=== PATIENT | female | born 2000 | race Caucasian/White ===

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

== ENCOUNTER 2025-11-14 11:38 | Inpatient (IN) ==
[2025-11-14] MEDS ORDERED: LIDOCAINE 1% LOCAL 20 ML VIAL INFIL PRN (12:10)
[2025-11-14 12:59] LABS: Hematocrit (blood only) 41.4 % (37.0-47.0); Hemoglobin 13.9 g/dL (12.0-16.0); Mean Corpuscular Hemoglobin 29.3 pg (25.0-34.0); Mean Corpuscular Volume 87.3 fL (80.0-100.0); Platelet Count 237 K/uL (130-400); RDW Standard Deviation 39.6 fL (36.4-46.3); Red Blood Count 4.74 M/uL (4.20-5.40); White Blood Count 10.90 K/ul (4.8-10.8)
[2025-11-14] MEDS: CALCIUM CARBONATE 500 MG CHEWABLE TAB PO PRN (13:03)
--- NOTE | 2025-11-14 13:24 | History & Physical Report ---
Date of Service November 14, 2025 Assessment & Plan (1) with 39 completed weeks gestation: (2) Encounter for induction of labor: Plan admit, iv. labs. no bp issue here but offered and accepted induction of labor. sousa placed and will start pit when unit census allows. [facility] categ 1. Admission and Anticipated Discharge Date Admission Date: November 14, 2025 History of Present Illness Chief Complaint: elevated bp in office. Primary Care Provider: DIANDRA Jorge 25yo at 39+wks bridgette presents to LD from office with elevated bps. She was seen in office by me yesterday and sent to LD with alot of symptoms and sbp >140 x 2. Her bps here were normal, labs were normal and she was sent home. She went to office today and sbp elevated again and sent here again. BPs here again are normal. Pt notes same mild nava that she had yesterday, not enough to take meds. She had many complaints yesterday as well as far as intermittent visual change and n/v. Of note, on prior recent exams, palpated vaginal septum or hymenal band persistent. PNC uncomplicated PNL rh pos, ri, gbs neg OBH: g1 GYNH: nl paps no stds Allergies Allergy/AdvReac Type Severity Reaction Status Date / Time red dye Allergy Unknown hives Verified 11/14/25 10:49 azithromycin Allergy Rash Verified 11/14/25 10:49 Home Medications Medication Instructions Recorded Confirmed Type PNV [id number] See Rx Instructions .Route .COMPLEX 04/09/25 11/14/25 History [ Gummies] Patient History Medical History (Updated 11/14/25 @ 13:34 by Tracie Garcia MD, FACOG) Vaginal septum Varicella vaccination Flying phobia POTS (postural orthostatic tachycardia syndrome) Closed head injury Surgical History History of oral surgery S/P wisdom tooth extraction Family History Grandfather (Maternal) Colorectal cancer Stomach cancer Grandmother (Maternal) Breast cancer CHF (congestive heart failure) Mother Anxiety Sister Anxiety Other Cancer Denies family history of Ovarian cancer Prostate cancer Myocardial infarction Lung cancer Social History Smoking Status: Never smoker Do You Dip or Chew Tobacco: No; Hx Alcohol Use: No Hx Substance Use: No Preferred Language: [place] Communication Ability: Effective Visual Impairment: No Limitations Hearing Ability: Normal Janitorial Cleaner Required: No Beliefs That Will Affect Care: None marital status: Single marital status details: soco Perez (24) [phone] Current Living Situation: Significant Other Current Living Situation Comment: lives with parents, cats-parents changing litter current occupational status: student 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 [employer] How many Children do You have: 0 Feels Safe at Home: Yes Childhood Exposure to Second-Hand Smoke: No caffeine: Yes Dental Care, Regularly: Yes Physical Activity Frequency: Does not Exercise Seatbelt Use: always Sunscreen Use: Yes Assistive Devices: None Review of Systems as per Subjective / HPI Physical Exam Constitutional: WD/WN, vitals as above Respiratory: normal respiratory effort, lungs clear to auscultation Cardiovascular: Rate/Rhythm: regular rate and regular rhythm Gastrointestinal (Abdomen): Percussion/Palpation: abdomen soft (gravid); abdomen nontender and no guarding Neurologic: grossly normal Psychiatric: A+Ox3, euthymic affect Genitourinary: Manual OB Exam: + cervical dilation (1), + cervical effacement 70% and + station (mid med) -2 OB Exam Monitor Tracing: + external FHT monitor used, + external uterine monitor used, + category I and + normal FHT variability PROCEDURE: sse cx visualized easily, grasped on ant lip with ring forcep, sousa through os and balloon inflated with 40cc sterile water. Spec removed, sousa taped to leg. pt marielena well. Results & Data Vital Signs (Past 12 Hours) Vital Signs Pulse BP 11/14/25 12:05 108 H 125/85 Coding Level of Care Code None Diagnoses with 39 completed weeks gestation Z3A.39 Encounter for induction of labor Z34.90
[2025-11-14] MEDS: LACTATED RINGER'S 1,000 ML IV PRN (14:53)
[2025-11-14] MEDS: OXYTOCIN 30 UNITS/NSS 30 UNITS/500 ML BAG IV PRN (14:53)
[2025-11-14] MEDS: ONDANSETRON INJ 2 MG/ML 2 ML VIAL IV PRN (20:08)
[2025-11-14] MEDS ORDERED: ONDANSETRON INJ 2 MG/ML 2 ML VIAL IV PRN (20:12)
[2025-11-14] MEDS ORDERED: NALBUPHINE HCL INJ 10 MG/ML AMP IV PRN (20:12)
[2025-11-14] MEDS ORDERED: LIDOCAINE 2% MPF LOCAL 5 ML VIAL EPI PRN (20:12)
[2025-11-14] MEDS ORDERED: BUPIVACAINE 0.25% PF 30 ML VIAL EPI PRN (20:12)
[2025-11-14] MEDS ORDERED: SODIUM CHLORIDE 0.9% PF INJ 10 ML VIAL EPI PRN (20:12)
[2025-11-14] MEDS ORDERED: NALOXONE HCL 1 MG in SODIUM CHLORIDE 0.9% 1,000 ML IV PRN (20:12)
[2025-11-14] MEDS ORDERED: ROPIVACAINE 0.5% PF 5 MG/ML 20 ML VIAL EPI PRN (20:12)
[2025-11-14] MEDS ORDERED: diphenhydrAMINE 50 MG/ML VIAL IV PRN (20:12)
[2025-11-14] MEDS ORDERED: fentANYL 2 MCG/ML BUPIVacaine 0.125%-NSS 100ML BAG EPI PRN (20:12)
[2025-11-14] MEDS ORDERED: NALOXONE HCL 0.4 MG/1 ML VIAL/CARP IV PRN (20:12)
--- NOTE | 2025-11-14 20:14 | Anesthesiology Consultation ---
Date of Service November 14, 2025 Assessment & Plan (1) Encounter for pre-operative examination: Chart Review Chart Review: Patient NOT seen in Pre Admission Testing and Acceptable Risk for Labor Epidural Consults Requested none History Height/Weight Height: 5 ft Weight: 81.647 kg Allergies Allergy/AdvReac Type Severity Reaction Status Date / Time red dye Allergy Unknown hives Verified 11/14/25 10:49 azithromycin Allergy Rash Verified 11/14/25 10:49 Medications Home Medications Medication Instructions Recorded Confirmed Last Taken PNV no.[id number] See Rx Instructions .Route .COMPLEX 04/09/25 11/14/25 11/12/25 21:00 [ Gummies] Active Medications Generic Name Dose Route Start Last Admin Trade Name Freq PRN Reason Stop Dose Admin Calcium Carbonate 500 mg 11/14/25 12:10 11/14/25 13:03 Calcium Carbonate 500 Mg Chewable Tab PO 12/14/25 12:09 500 mg Q6H PRN Administration Indigestion Oxytocin 30 units in 500 mls @ 13 mls/hr 11/14/25 12:10 11/14/25 19:30 Pitocin 30 Units/Nss IV 11/16/25 12:09 0.78 units/hr .Q24H PRN 13 mls/hr Labor Induction/Augmentation Titration Protocol 0.78 UNITS/HR Lactated Ringer's 1,000 mls @ 125 mls/hr 11/14/25 12:10 11/14/25 20:10 Lr IV 11/16/25 12:09 999 mls/hr .Q8H PRN Administration L&D Protocol Protocol Ondansetron HCl 4 mg 11/14/25 19:55 11/14/25 20:08 Ondansetron Inj 2 Mg/Ml 2 Ml Vial IV 12/14/25 19:54 4 mg Q6H PRN Administration Nausea And Vomiting Past Medical History Medical History (Updated 11/14/25 @ 20:14 by Amol Ruiz MD) Encounter for pre-operative examination Vaginal septum Varicella vaccination Flying phobia POTS (postural orthostatic tachycardia syndrome) Closed head injury Exercise / Class Metabolic Activity II 4-5 Yardwork/Stairs/Walk up hill Past Family History Family History Grandfather (Maternal) Colorectal cancer Stomach cancer Grandmother (Maternal) Breast cancer CHF (congestive heart failure) Mother Anxiety Sister Anxiety Other Cancer Denies family history of Ovarian cancer Prostate cancer Myocardial infarction Lung cancer Past Surgical History Surgical History History of oral surgery S/P wisdom tooth extraction Social History Smoking Status: Never smoker Do You Dip or Chew Tobacco: No Hx Alcohol Use: No Hx Substance Use: No Physical Exam Vital Signs Last Vital Signs Temp 37.3 C 11/14/25 19:10 Pulse 93 H 11/14/25 20:33 Resp 18 11/14/25 19:10 BP 140/95 11/14/25 20:33 Pulse Ox 99 11/14/25 20:32 Testing Laboratory Results 11/14/25 12:35 Blood Type O Positive 11/14/25 12:35 Antibody Screen NEGATIVE 11/14/25 12:35
[2025-11-14] MEDS: BUPIVACAINE 0.25% PF 30 ML VIAL ONE (20:34)
[2025-11-14] MEDS: LIDOCAINE 2%/EPINEPHRINE 1:200,000 20 ML PF ONE (20:34)
[2025-11-14] MEDS: fentANYL 2 MCG/ML BUPIVacaine 0.125%-NSS 100ML BAG ONE (20:36)
[2025-11-14] MEDS: SODIUM CHLORIDE 0.9% PF INJ 10 ML VIAL EPI STA (21:15)
[2025-11-14] MEDS: SODIUM CHLORIDE 0.9% PF INJ 10 ML VIAL ONE (21:15)
[2025-11-14] MEDS: BUPIVACAINE 0.25% PF 30 ML VIAL EPI STA (21:15)
[2025-11-14] MEDS: LIDOCAINE 2%/EPINEPHRINE 1:200,000 20 ML PF EPI STA (21:15)
[2025-11-15] MEDS: OXYTOCIN 30 UNITS/NSS 30 UNITS/500 ML BAG IV PRN (00:44)
--- NOTE | 2025-11-15 00:46 | Delivery Summary ---
Vaginal Delivery Summary Date of Service November 15, 2025 Vaginal Delivery Summary [facility] Vaginal Delivery Summary: Pre-delivery diagnoses: 25yo @ 39 4/7, eIOL, vaginal septum Post-delivery diagnoses: same Procedure: spontaneous vaginal delivery Surgeon: Ana Rosa Sher DO Complications: none Findings: Viable male . Apgars: 8/9. Weight pending, please see nursery records Estimated QBL : 286cc Description of delivery: The patient progressed to complete with epidural anesthesia. Per patient report, she then felt need to vomit, and then the baby delivered spontaneously, and then I was called to room by RN. I arrived to room at 40 seconds of life, and the baby was on mother's abdomen, spontaneously crying. Delayed cord clamping was employed, and the cord was doubly clamped and cut. A segment was retained for cord gases. Cord blood was obtained. The placenta was delivered spontaneously intact with a 3-vessel cord. The uterus and vagina were swept of clots and debris. IV pitocin was given. The uterus became firm. The cervix, vagina, and perineum were inspected. Cervix evaluated with Ring forceps - intact. Vaginal septum torn, posterior portion required sutures to obtain hemostasis. Excellent hemostasis was observed. The mother and baby are recovering in stable and good condition in the room. Sponge, needle and instrument counts were correct x 2. Ana Rosa Sher DO [facility] Vaginal Delivery Charge Vaginal Delivery Codes: 47684 global code for the antepartum, delivery, and post- Delivery Type Details: [facility]
[2025-11-15] MEDS ORDERED: HYDROCORTISONE ACETATE 25 MG SUPP PR PRN (01:38)
[2025-11-15] MEDS ORDERED: OXYTOCIN 30 UNITS/NSS 30 UNITS/500 ML BAG IV PRN (01:38)
[2025-11-15] MEDS: BENZOCAINE 20% SPRY 85 APPLN/85 GM CAN EXT PRN (02:46)
[2025-11-15] MEDS: DIPHTHER/TETAN/PERTUS Vaccine (Tdap, Adol/Adult) 0.5mL IM ONE (02:47)
[2025-11-15] MEDS: CALCIUM CARBONATE 500 MG CHEWABLE TAB PO PRN (03:35)
[2025-11-15] MEDS: ACETAMINOPHEN 325 MG TAB PO PRN (06:48)
[2025-11-15] MEDS: IBUPROFEN 600 MG TAB PO PRN (08:07)
[2025-11-15] MEDS: DOCUSATE SODIUM 100 MG CAP PO SCH (08:08)
[2025-11-15] MEDS: PRENATAL VITAMIN 1 TAB PO SCH (08:08)
--- NOTE | 2025-11-15 12:31 | Anesthesia Procedure Note ---
Date of Service November 15, 2025 Anesthesia Post Epidural Note Vital Signs Vital Signs: Temp Pulse Resp BP Pulse Ox O2 Del Method 36.9 C 90 18 108/72 96 Room Air 11/15/25 08:15 11/15/25 08:15 11/15/25 08:15 11/15/25 08:15 11/15/25 03:28 11/15/25 08:15 Pain Intensity Abdomen: Pain Intensity: 2 Notes Mental Status: alert / awake / arousable and participated in evaluation Nausea / Vomiting: adequately controlled Pain: adequately controlled Airway Patency, RR, SpO2: stable & adequate BP & HR: stable & adequate Hydration State: stable & adequate Neuraxial Anesthesia: was administered and sensory block is resolving Anesthetic Complications: no major complications apparent Epidural: Removed without complications and With tip intact
[2025-11-15] MEDS: ONDANSETRON 4 MG OD TAB PO PRN (13:34)
--- NOTE | 2025-11-15 13:48 | Obstetrical Progress Note ---
Date of Service November 15, 2025 Assessment & Plan (1) Swelling of vulva: Plan Definitely bruising and swelling of ext labia. Protuberant tissue is in line with signout this am from provider that she had left tissue this way and suspected in pp would retract. No active abnl bleeding noted. I did not do digital exam as do not at this point feel needed. She is voiding and ambulating but is sore and feels pressure. Nursing to let me know if feel bruised area expanding. VSS but can trend hgb to see if any concern for hidden losses but pt is asymptomatic. Advise icing x 24hr from delivery and then sitz baths and time. She will trial oxycodone but advised to make sure takes colace to keep bowels soft. She gets nausea with any meds and so wanted zofran prior to having to swallow oxycodone. Will evaluate again ongoing prn or in am. Admission and Anticipated Discharge Date Admission Date: November 14, 2025 [address]sp by nursing. pt feeling pressure in vulva and evidence of vulvar hematoma that is larger than her evaluation this am. of note, pt had , did not push at all, vomited x 1 and baby delivered. did have vaginal septum that ruptured and at signout today those findings reviewed by provider as well as what was done and what she saw. Review of Systems Review of Systems: no dizziness, lightheadedness cramping suprapubically when she feeds. pressure with upright positioning. pt is voiding. ambulating. Physical Exam Constitutional: WD/WN, vitals as above Genitourinary: bilataral labia with swelling, bruising noted in swollen tissue of entire labia minora, does not seem tense like an expanding hematoma. gently labia, tissue that is also bruised protruding from vagina. no active bleeding. Results & Data Vital Signs (Past 12 Hours) Vital Signs Temp Pulse Pulse Resp BP BP Pulse Ox 11/15/25 08:15 98.4 F 90 18 108/72 11/15/25 03:28 98.4 F 114 H 16 132/85 96 11/15/25 02:40 99.0 F 18 11/15/25 02:38 112 H 135/80 11/15/25 02:23 100 H 126/62 11/15/25 02:10 98.4 F 18 11/15/25 02:08 106 H 132/69 11/15/25 01:54 108 H 132/66 O2 Del Method 11/15/25 08:15 Room Air 11/15/25 03:28 Room Air 11/15/25 02:40 11/15/25 02:38 11/15/25 02:23 11/15/25 02:10 11/15/25 02:08 11/15/25 01:54 PG Care Time/CCT Total # of Minutes Spent Total Time Spent with Patient: Total time spent is greater than 50% in coordination of care (as documented) at patient's floor/unit and/or counseling patient: Coding Level of Care Code None Diagnoses Swelling of vulva N90.89
[2025-11-15 14:47] LABS: Hematocrit (blood only) 31.8 % (37.0-47.0); Hemoglobin 11.0 g/dL (12.0-16.0)
--- NOTE | 2025-11-16 10:07 | Obstetrical Progress Note ---
Date of Service November 16, 2025 Assessment & Plan (1) care and examination: Plan doing well overall but need to see if emptying completely. bladder scan prn. also will change to codeine and see if benefit for pt. enc ambulation and time. routine care. will take time to dec soreness of vulvar area, start sitz bath. hgb noted from yesterday, do not feel ongoing bleeding and vss and therefore will not recheck at this time. Subjective Ambulation: ambulating normally Voiding: incontinence (leaking with standing, ? emptying completely thinks so) Diet Tolerance:: regular diet Lochia:: Small Feeding Type:: breast feeding still sore, has trouble feeding baby upright due to sore bottom. ankle pain yest was swelling related and she says better today. no calf pain. ? emptying with voids. hasn't started sitz baths yet. oxycodone helped with pain but wants to try something not as strong. Constitutional: + as per Subjective / HPI Physical Exam Constitutional WD/WN, vitals as above Respiratory normal respiratory effort, lungs clear to auscultation Cardiovascular Rate/Rhythm: regular rate and regular rhythm Gastrointestinal (Abdomen) Inspection/Auscultation: abdomen normal to inspection Percussion/Palpation: abdomen soft Fundus firm 2cm down Musculoskeletal nt calves no edema Neurologic grossly normal Psychiatric A+Ox3, euthymic affect Genitourinary perineum, bruising noted but not extended compared to yesterday and swelling decreased. Results & Data Vital Signs (Past 12 Hours) Vital Signs Temp Pulse Pulse Resp BP Pulse Ox O2 Del Method 11/16/25 07:45 90 18 116/78 Room Air 11/16/25 00:10 97.9 F 100 H 16 114/70 98 Room Air
[2025-11-16] MEDS: CODEINE SULFATE 30 MG TAB PO PRN (11:26)
[2025-11-16 23:37] VITALS: O2SAT 98
--- NOTE | 2025-11-17 06:28 | Obstetrical Progress Note ---
Date of Service <Tracie Garcia MD, FACOG - Last Filed: 11/17/25 07:52> November 17, 2025 Assessment & Plan <Tracie Garcia MD, FACOG - Last Filed: 11/17/25 07:52> (1) care and examination: (2) Swelling of vulva: <Erin Oviedo MD - Last Filed: 11/17/25 07:34> (1) care and examination: (2) Swelling of vulva: Plan 25 yo post- day 2 s/p . Fells well today. Vital signs stable Continue post- care Encourage ambulation and Pain improved with the use of Codeine. Worse pain 8 out of 10 on severity scale. Hgb stable Discharge home today, follow up with Dr. Sher in 6 weeks or sooner if the patient wants to see us. Continue Sitz bath and pain medication as needed. Subjective <Tracie Garcia MD, FACOG - Last Filed: 11/17/25 07:52> Ambulation: ambulating normally Diet Tolerance:: regular diet Lochia:: Small Feeding Type:: breast feeding catheter out and awaiting void. bottom sore, using codeine with success Constitutional: + as per Subjective / HPI Physical Exam <Tracie Garcia MD, FACOG - Last Filed: 11/17/25 07:52> Constitutional WD/WN, vitals as above Respiratory normal respiratory effort, lungs clear to auscultation Cardiovascular Rate/Rhythm: regular rate and regular rhythm Gastrointestinal (Abdomen) Inspection/Auscultation: abdomen normal to inspection Percussion/Palpation: abdomen soft Fundus firm 2cm down Musculoskeletal nt calves no edema Neurologic grossly normal Psychiatric A+Ox3, euthymic affect Results & Data <Tracie Garcia MD, FACOG - Last Filed: 11/17/25 07:52> Vital Signs (Past 12 Hours) Vital Signs Temp Pulse Resp BP Pulse Ox O2 Del Method 11/16/25 23:30 98.4 F 88 17 134/93 98 Room Air 11/16/25 19:30 98.1 F 109 H 17 127/82 97 Room Air Supervising Physician <Tracie Garcia MD, FACOG - Last Filed: 11/17/25 07:52> Co-Signing Physician Notes Resident Physician Supervision Note: I was present with Dr. Oviedo during the history and exam. I discussed the case with the resident and agree with the findings and plan as documented in the note. Any exceptions or clarifications are listed here: pt notes some improvement, insists needs codeine to help with bottom pain but also was clearly made aware that is a constipating and addictive med and so rec min use. will send small script. abd soft ff 2 down nt, ext nt calves. await void, aware may need to have catheter replaced and go home with it. we will give her plenty of time to see if can void spont. rhpos, ri, breast feeding. will need 6wk pp check. offered 2 wk check up for her bottom if she wants. Documented By: Tracie Garcia MD, FACOG Resident Activity Tracking <Erin Oviedo MD - Last Filed: 11/17/25 07:34> Resident Involvement: Resident Care Provided Care Provided: Adult Hospital Medicine
[2025-11-17 08:42] VITALS: BP 125/88; PULSE 86; RESP 18; TEMP 98.6
[2025-11-17] MEDS ORDERED: TYLENOL #3 HOME PACK PO ONE (10:16)
== END 2025-11-17 11:50 | disposition home or self-care (01) | DRG 806 ==
LOC: OPB 11:38 → 4S1 11:41 → 4E2 11-15 03:21